=== PATIENT | female | born 1965 | race Caucasian/White ===

== ENCOUNTER 2017-12-10 22:08 | Emergency (ER) | payer OTHER ==
[2017-12-10 22:23] VITALS: BP 153/97
== END 2017-12-11 02:04 | disposition left against medical advice (07) ==
LOC: ER 22:08
DX: Z53.21 Procedure and treatment not carried out due to patient leaving prior to being seen by health care provider (principal)

== ENCOUNTER 2017-12-11 23:20 | Emergency (ER) | payer OTHER ==
[2017-12-11] MEDS ORDERED: METOCLOPRAMIDE HCL INJ/PF 10 MG/2 ML SDV IV ONE (23:38)
[2017-12-11] MEDS ORDERED: FENTANYL CITRATE INJ/PF 100 MCG/2 ML AMPUL IV ONE (23:38)
[2017-12-11] MEDS ORDERED: NORMAL SALINE 1000 ML 1,000 ML IV ONE (23:38)
--- NOTE | 2017-12-11 23:40 | ER Document Report ---
ED GI/ - General Chief Complaint: Abdominal Pain Stated Complaint: ABDOMINAL PAIN Time Seen by Provider: 12/11/17 23:29 Notes: Patient is a 52-year-old female who comes emergency department for chief complaint of 2 days of worsening upper abdominal pain. She states that she feels burning and sharp intermittently, states pain is worse to eat, she has vomited multiple times yesterday and today, she saw some blood in her vomit today, she states she had a normal bowel movement earlier today. She denies fever or chills. She admits to heavy alcohol use, she smokes, she states she was has been taking aspirin and ibuprofen for symptom management. Only past medical history is anxiety and depression, she denies any surgeries, denies any daily medications at this time. She denies any recreational drugs except for marijuana. TRAVEL OUTSIDE OF THE [place] IN LAST 30 DAYS: No - Related Data Allergies/Adverse Reactions: prednisone [Prednisone] Allergy (Severe, Verified 07/21/11 11:08) mental problems bacitracin [From Neosporin] Allergy (Intermediate, Verified 07/21/11 11:08) bacitracin zinc [From Neosporin] Allergy (Intermediate, Verified 07/21/11 11:08) gramicidin D [From Neosporin] Allergy (Intermediate, Verified 07/21/11 11:08) neomycin sulfate [From Neosporin] Allergy (Intermediate, Verified 07/21/11 11:08 ) polymyxin B [From Neosporin] Allergy (Intermediate, Verified 07/21/11 11:08) polymyxin B sulfate [From Neosporin] Allergy (Intermediate, Verified 07/21/11 11 :08) codeine [Codeine] Allergy (Mild, Verified 07/21/11 11:08) GI upset Past Medical History - General Information source: Patient - Social History Smoking Status: Current Every Day Smoker Smoking Education Provided: Yes - <3 min Frequency of alcohol use: Heavy Drug Abuse: None Lives with: Family Family History: Reviewed & Not Pertinent Psychiatric Medical History: Reports: Hx Anxiety, Hx Depression - Immunizations Hx Diphtheria, Pertussis, Tetanus Vaccination: Yes Review of Systems - Review of Systems Constitutional: No symptoms reported EENT: No symptoms reported Cardiovascular: No symptoms reported Respiratory: No symptoms reported Gastrointestinal: See HPI Genitourinary: No symptoms reported Female Genitourinary: No symptoms reported Musculoskeletal: No symptoms reported Skin: No symptoms reported Hematologic/Lymphatic: No symptoms reported Neurological/Psychological: No symptoms reported Physical Exam - Vital signs Vitals: Pulse Ox 98 12/11/17 23:28 - Notes Notes: GENERAL: Alert, interacts well. No acute distress. HEAD: Normocephalic, atraumatic. EYES: Pupils equal, round, and reactive to light. Extraocular movements intact. ENT: Oral mucosa moist, tongue midline. NECK: Full range of motion. Supple. Trachea midline. LUNGS: Clear to auscultation bilaterally, no wheezes, rales, or rhonchi. No respiratory distress. HEART: Regular rate and rhythm. No murmur ABDOMEN: Tender in the epigastric area, minimally tender in the upper abdomen otherwise, lower abdomen nontender. Non-distended. Bowel sounds present in all 4 quadrants. EXTREMITIES: Moves all 4 extremities spontaneously. No edema, normal radial and dorsalis pedis pulses bilaterally. No cyanosis. BACK: no cervical, thoracic, lumbar midline tenderness. No saddle anesthesia, normal distal neurovascular exam. NEUROLOGICAL: Alert and oriented x3. Normal speech. [cranial nerves II through XII grossly intact]. PSYCH: Normal affect, normal mood. SKIN: Warm, dry, normal turgor. No rashes or lesions noted. Course - Re-evaluation Re-evalutation: Patient taken aspirin, ibuprofen, drinks regular alcohol, and pain in the upper abdomen, worse with food, reports vomiting. No black stools. There is generalized upper abdominal tenderness but no guarding. High suspicion of either pancreatitis or gastritis. CBC unremarkable. Chemistry shows elevation of LFTs with AST greater than ALT consistent with alcohol use, bilirubin is not elevated, ultrasound does not show obstruction that is definite, no stones noted, possible sludge, no pericholecystic fluid. Indeterminate common bile duct that does not definitely rule out obstructive stone but with normal bilirubin and nonobstructive LFT pattern I have low suspicion of obstruction. After medications, patient tolerating p.o. without any difficulty. Discussed results with patient including sludge and uncertain ultrasound. Presentation is most consistent with gastritis, no evidence of pancreatitis, discussed follow-up, treatment, return precautions. Patient requests primary care referral, is new to the area. States understanding and agreement with plan. Stable at time of discharge. - Vital Signs Vital signs: Temp Pulse Resp BP Pulse Ox 98.1 F 79 22 H 139/93 H 96 12/11/17 23:32 12/11/17 23:32 12/12/17 02:43 12/12/17 02:43 12/12/17 02:43 - Laboratory Result Diagrams: 12/11/17 22:55 12/11/17 22:55 Laboratory results interpreted by me: 12/11/17 12/11/17 12/12/17 22:55 22:55 00:34 Hgb 15.8 H RDW 14.9 H AST 88 H ALT 60 H Alkaline Phosphatase 136 H Total Protein 8.6 H Urine Blood SMALL H Discharge - Discharge Clinical Impression: Epigastric pain Vomiting Qualifiers: Vomiting type: unspecified Vomiting Intractability: non-intractable Nausea presence: with nausea Qualified Code(s): R11.2 - Nausea with vomiting, unspecified Condition: Stable Disposition: HOME, SELF-CARE Additional Instructions: Your evaluation and workup tonight are most consistent with gastritis. This is inflammation of your upper gastrointestinal tract. Please take the medications as prescribed, avoid things like NSAIDs (aspirin, naproxen, ibuprofen, BC powder ), caffeine, smoking, alcohol, spicy foods. Start with clear fluids, progress to bland diet, then progress as tolerated. Follow-up with primary care. See referral. Return if you worsen including returned vomiting, vomiting blood, black stools, severe pain, or any other concerning or worsening symptoms. Prescriptions: Famotidine [Pepcid 20 mg Tablet] 20 mg PO BID #20 tablet Promethazine HCl [Phenergan 25 mg Tablet] 1 - 2 tab PO Q6H PRN #15 tablet PRN Reason: Sucralfate [Carafate 1 gm Tablet] 1 gm PO QID #20 tablet Referrals: MICKEY MAURO MD [ACTIVE STAFF] - Follow up in 3-5 days CHAZ MEEKS MD [ACTIVE STAFF] - Follow up in 3-5 days
[2017-12-11 23:44] LABS: ABSOLUTE BASOPHILS # (AUTO) 0.1 10^3/uL (0.0-0.2); ABSOLUTE EOSINOPHILS # (AUTO) 0.1 10^3/uL (0.0-0.6); ABSOLUTE LYMPHOCYTES (AUTO) 2.8 10^3/uL (0.5-4.7); ABSOLUTE MONOCYTES (AUTO) 0.4 10^3/uL (0.1-1.4); ABSOLUTE NEUT (AUTO) 3.8 10^3/uL (1.7-8.2); BASOPHILS % (AUTO) 1.2 % (0-2); EOSINOPHILS % (AUTO) 0.9 % (0-6); HEMATOCRIT 44.6 % (36.0-47.0); HEMOGLOBIN 15.8 g/dL (12.0-15.5); LYMPHOCYTES % (AUTO) 38.9 % (13-45); MEAN CORPUSCULAR HEMOGLOBIN 33.4 pg (27.0-33.4); MEAN CORPUSCULAR HGB CONC 35.5 g/dL (32.0-36.0); MEAN CORPUSCULAR VOLUME 94 fl (80-97); MONOCYTES % (AUTO) 5.8 % (3-13); PLATELET COUNT 318 10^3/uL (150-450); RED BLOOD COUNT 4.74 10^6/uL (3.72-5.28); RED CELL DISTRIBUTION WIDTH 14.9 % (11.5-14.0); SEGMENTED NEUTROPHILS % (AUTO) 53.2 % (42-78); TOTAL CELLS COUNTED % (AUTO) 100 %; WHITE BLOOD COUNT 7.2 10^3/uL (4.0-10.5)
[2017-12-11 23:54] LABS: ALANINE AMINOTRANSFERASE 60 U/L (9-52); ALBUMIN 4.9 g/dL (3.5-5.0); ALKALINE PHOSPHATASE 136 U/L (38-126); ANION GAP 13 (5-19); ASPARTATE AMINO TRANSFERASE 88 U/L (14-36); BILIRUBIN,DIRECT 0.2 mg/dL (0.0-0.4); BILIRUBIN,TOTAL 0.3 mg/dL (0.2-1.3); BLOOD UREA NITROGEN 14 mg/dL (7-20); CALCIUM 9.6 mg/dL (8.4-10.2); CARBON DIOXIDE 28 mmol/L (22-30); CHLORIDE 103 mmol/L (98-107); GLUCOSE 92 mg/dL (75-110); LIPASE 194.6 U/L (23-300); POTASSIUM 4.6 mmol/L (3.6-5.0); TOTAL PROTEIN 8.6 g/dL (6.3-8.2)
[2017-12-12 01:02] LABS: APPEARANCE,URINE CLEAR; BILIRUBIN,URINE NEGATIVE (NEGATIVE); COLOR,URINE STRAW; GLUCOSE, URINE NEGATIVE (NEGATIVE); KETONES,URINE NEGATIVE (NEGATIVE); LEUKOCYTE ESTERASE,URINE NEGATIVE (NEGATIVE); NITRITE,URINE NEGATIVE (NEGATIVE); PROTEIN,URINE NEGATIVE (NEGATIVE); URINE SPECIFIC GRAVITY 1.009; UROBILINOGEN,URINE NEGATIVE mg/dL (<2.0)
--- NOTE | 2017-12-12 01:23 | RADIOLOGY REPORT (SQ) ---
EXAM DESCRIPTION: CLINICAL HISTORY: 52 years Female epigastric pain, vomiting with food COMPARISON: None. TECHNIQUE: Transabdominal grayscale imaging were performed to evaluate the right upper quadrant. FINDINGS: The aorta appears normal in caliber. The visualized thickness the pancreas are unremarkable. No acute abdomen amount in the liver. The IVC is patent. Hepatic veins appear patent. Patent hepatopedal portal vein. Common duct measures 7 mm which is prominent. No evidence of gallbladder wall thickening. No stones are noted. Some internal echoes are noted suggesting sludge. Negative Rojas sign. 2.5 cm right renal cyst in the superior pole. Right kidney is otherwise unremarkable. IMPRESSION: Probable gallbladder sludge without evidence of acute cholecystitis Prominent common bile duct. Choledocholithiasis is not excluded on the basis of this exam
[2017-12-12] MEDS ORDERED: SUCRALFATE 1 GM TABLET PO ONE (01:36)
[2017-12-12] MEDS ORDERED: FAMOTIDINE 20 MG TABLET PO ONE (01:36)
[2017-12-12 02:47] VITALS: BP 139/93
--- NOTE | 2017-12-12 07:33 | EKG REPORT ---
SEVERITY:- NORMAL ECG - SINUS RHYTHM : Confirmed by: Henry Gibson MD 12-Dec-2017 07:33:21
== END 2017-12-12 02:47 | disposition home or self-care (01) ==
LOC: ER 23:20
DX: R10.13 Epigastric pain (principal); R11.2 Nausea with vomiting, unspecified; R10.10 Upper abdominal pain, unspecified; Z79.899 Other long term (current) drug therapy; F10.10 Alcohol abuse, uncomplicated; F17.200 Nicotine dependence, unspecified, uncomplicated
CPT/HCPCS: 93005; 99285; 96361; 96374; 96375; 36415; 83690; 85025; 80053; 81001; 76705; 93010; J3010; J2765; J7030